=== PATIENT | female | born 1965 | race American Indian/Alaskan Native ===

== ENCOUNTER 2017-04-29 19:54 | Emergency (ER) | payer BC ==
[2017-04-29 21:05] VITALS: BP 176/86
[2017-04-29 23:02] LABS: Basophils % (Auto) 0.4 % (0.0-1.8); Hematocrit 41.5 % (30.3-42.9); Hemoglobin 13.5 gm/dl (10.1-14.3); Mean Corpuscular HGB Conc 33 % (30-34); Mean Corpuscular Hemoglobin 29 pg (28-32); Mean Corpuscular Volume 90 fl (79-97); Platelet Count 237 K/mm3 (140-440); Red Blood Count 4.62 M/mm3 (3.65-5.03); Red Cell Distribution Width 14.3 % (13.2-15.2); White Blood Count 10.7 K/mm3 (4.5-11.0)
[2017-04-29 23:03] LABS: Anion Gap 18 mmol/L; BUN/Creatinine Ratio 15.38; Blood Urea Nitrogen 20 mg/dL (7-17); Calcium 9.2 mg/dL (8.4-10.2); Carbon Dioxide 25 mmol/L (22-30); Chloride 104.4 mmol/L (98-107); Glucose 96 mg/dL (65-100); Potassium 4.1 mmol/L (3.6-5.0); Sodium 143 mmol/L (137-145)
[2017-04-29 23:11] LABS: INR 0.93 (0.87-1.13)
[2017-04-29 23:12] LABS: Partial Thromboplastin Time 30.6 Sec. (24.2-36.6)
[2017-04-29 23:26] LABS: Erythrocyte Sedimentation Rate 20 mm/Hr (0-20)
== END 2017-04-30 02:33 | disposition left against medical advice (07) ==
LOC: ED 19:54
DX: R60.0 Localized edema (principal); Z53.21 Procedure and treatment not carried out due to patient leaving prior to being seen by health care provider
CPT/HCPCS: 36415; 80048; 82140; 83880; 84484; 84703; 85025; 85610; 85652; 85730; 86140; 93005; 93010